=== PATIENT | female | born 1995 | race Caucasian/White ===

== ENCOUNTER 2023-09-14 11:15 | Outpatient (CLI) | payer OTHER ==
[~2023-09-14] VITALS: Ht 160 cm; Wt 85.3 kg
[2023-09-14] MEDS ORDERED: RINGERS SOLUTION,LACTATED 1,000 ML IV SCH (11:45)
[2023-09-14 12:49] LABS: HEMATOCRIT 26.3 % (36.0-45.00); MEAN CELL VOLUME 72.3 fL (80.00-100.00); MEAN CORPUSCULAR HGB CONC 32.7 g/dl (32.0-36.0); PLATELET COUNT 190 K/uL (150-450); RED BLOOD COUNT 3.63 M/uL (4.00-6.00); RED CELL DISTRIBUTION WIDTH 15.7 % (11.5-14.5)
[2023-09-14 12:50] LABS: HEMOGLOBIN 8.6 g/dL (12.0-15.00); MEAN CORPUSCULAR HEMOGLOBIN 23.6 pg (27.00-32.0)
[2023-09-14 12:52] LABS: PH,URINE 6.5 (5.0-8.0); URINE APPEARANCE Cloudy; URINE BILIRRUBIN Negative (NEGATIVE); URINE BLOOD Negative; URINE COLOR Yellow; URINE GLUCOSE Negative (NEGATIVE); URINE LEUKOCYTE Small; URINE NITRATE Negative; URINE PROTEIN Trace (NEGATIVE)
[2023-09-14 12:53] LABS: URINE BACTERIA 1991.7 uL (0.0-1933); URINE EPITHELIAL CELLS 25.9 uL (0.0-38.8); URINE WBC 19.7 uL (0.0-23.2)
[2023-09-14 13:31] LABS: ALBUMIN 2.5 gm/dL (3.4-5.0); BILIRUBIN TOTAL 0.35 mg/dL (0.3-1.2); CALCIUM 8.8 mg/dL (8.5-10.1); CREATININE SERUM 0.44 mg/dL (0.55-1.02); GFR 167.9; GLOBULINA 3.3 G/DL (2.4-3.5); POTASSIUM 3.98 mEq/L (3.5-5.1); TOTAL PROTEIN 5.8 gm/dL (6.4-8.2)
[2023-09-14] MEDS ORDERED: PRENATAL TABLE1 EAC1 PO (15:02)
[2023-09-14] MEDS ORDERED: SOD FERRIC GLUC COMPLX/SUCROSE 125 MG in 0.9 % SODIUM CHLORIDE 100 ML IV SCH (16:55)
[2023-09-14] MEDS ORDERED: ACETAMINOPHEN 500 MG GEL..CAP PO ONE (22:39)
[2023-09-14] MEDS ORDERED: ACETAMINOPHEN 500 MG GEL..CAP PO PRN (23:00)
[2023-09-15 14:40] LABS: MEAN CELL VOLUME 73.3 fL (80.00-100.00); MEAN CORPUSCULAR HEMOGLOBIN 24.1 pg (27.00-32.0); MEAN CORPUSCULAR HGB CONC 32.9 g/dl (32.0-36.0); PLATELET COUNT 176 K/uL (150-450); RED BLOOD COUNT 3.68 M/uL (4.00-6.00); RED CELL DISTRIBUTION WIDTH 16.5 % (11.5-14.5)
[2023-09-15 15:06] LABS: HEMOGLOBIN 8.9 g/dL (12.0-15.00)
== END 2023-09-15 16:42 | disposition home or self-care (01) ==
LOC: OBS/DEL 11:15 → LDR 09-15 07:42 → OBS/DEL 09-15 07:42 → LDR 09-15 16:42
PROVIDERS: Obstetrics & Gynecology; ATTEND Obstetrics & Gynecology Gynecology
DX: O99.019 Anemia complicating pregnancy, unspecified trimester (principal); Z3A.32 32 weeks gestation of pregnancy